=== PATIENT | female | born 1960 | race Caucasian/White ===

== ENCOUNTER 2016-11-01 18:34 | Inpatient (IN) | payer OTHER ==
[~2016-11-01] VITALS: Ht 170.2 cm; Wt 64.9 kg
--- NOTE | ~2016-11-01 | PA ---
Unit #: [id number] #: [id number] Patient: JULIANA SANDRA [id number] [facility] [address] [place] [address] [id number] MR#: [id number] NAME: JULIANA SANDRA ROOM: P256 Age: 56 Sex: F Admission Date: 11/02/2016 : 1960 Date of Assessment: Attending Physician: Miguel Banerjee M.D. Admitting Physician: Miguel Banerjee M.D. Primary Care Physician: Generic Doctor Not In System PSYCHIATRIC ASSESSMENT DATE OF SERVICE 11/02/2016. IDENTIFYING DATA Ms. Sandra is a 56-year-old white female, who is a resident of [place], [place], and was transferred to from [facility] in [place], where she was taken accompanied by her . CHIEF COMPLAINT "I'm having a lot of trouble sleeping and anxiety is killing me and my ." HISTORY OF PRESENT ILLNESS Ms. Sandra is a 56-year-old white female with history of mood disorder, who was self-referred to the hospital reporting increasing depression, anxiety, difficulty sleeping and "I went to [facility] with my last night because I thought I might do something." The patient stated that she has been having suicidal thoughts on and off for the last 2 months and it has been worse for the past 2 weeks and she was trying to sleep for days and she stated that she is afraid to be left alone and has Cheryl disease and was taking medications until 2 months ago, at which time, she was placed on different medication by her neurologist and she also started Prozac a couple of months ago and the patient reports that she has a psychiatrist and a neurologist by whom she is currently being treated, and the patient had recent medication change and the patient does report increasing depression, suicidal ideation, that she took a whole bottle of Abilify, which was filled today and the patient has had active suicidal thoughts in the past, and was given charcoal due to her overdose. The patient stated that she has been extremely anxious and depressed and also has been suffering from insomnia and last night, she felt suicidal and the patient's took her off the medication and they felt the medication was making her depressed; however, the patient then ended up overdosing on her Abilify. The patient's psychiatrist suggested that the patient should stop taking all of her medications, start over slowly and today the patient's was on the computer and when he came out of the room, the patient was on the couch and told him that she took the whole bottle of pills that they picked up today and she told the patient that she was trying to sleep; however, she has been making suicidal statements for the past 2 weeks and as such, was taken to the emergency room where she was medically cleared and then transferred to us. SUBSTANCE ABUSE HISTORY The patient denies any alcohol or drug abuse. Unit #: [id number] #: [id number] Patient: JULIANA SANDRA PAST PSYCHIATRIC HISTORY The patient has had history of outpatient psychiatric treatment, currently has been seeing Dr. Carmona on an outpatient basis and has been on different psychotropic medications; however, she reports that her psychiatrist has suggested a drug holiday and starting over slowly. PAST MEDICAL HISTORY Cheryl disease. ALLERGIES No known medication allergies. PERSONAL AND SOCIAL HISTORY A 56-year-old white female, who reports that she is and lives at home with her and has fairly decent social support system. MENTAL STATUS EXAMINATION Middle-aged white female who was casually dressed with fair personal hygiene, appears to be in no acute distress or discomfort. She was awake and alert on interaction with intact orientation to time, place, and person. Her mood was anxious and depressed with a congruent affect. Her speech was slow and restricted in content. Her thought processes were disorganized with some looseness of associations and flight of ideas and suicidal ideations. Her insight and judgment remain significantly impaired. DIAGNOSTIC IMPRESSION Psychiatric: Bipolar disorder, most recent episode depressed, recurrent, moderate, without psychotic features. Medical: [place] disease. Stressors: Moderate psychosocial stressors. TREATMENT PLAN 1. The patient has presented with history of mood disorder, and has been decompensating and will need inpatient hospitalization for safety and stabilization. We will start her back on home medications, though we will hold off on Abilify as the patient overdosed and we will monitor her response to the medications and make further adjustments as needed. 2. Supportive therapy was provided to the patient. 3. Safe, structured, and nourishing environment will be provided. ESTIMATED LENGTH OF STAY 5 to 7 days. ABILITY TO HELP SELF Limited. WILLINGNESS TO HELP SELF The patient appears to be willing to help self. STRENGTHS 1. Communicative. 2. Cooperative. PROBLEMS 1. Chronic dysphoric symptoms. 2. Poor social support system. Unit #: [id number] #: [id number] Patient: JULIANA SANDRA DISCHARGE CRITERIA This will be contingent upon the patient's ability to show resolution of her depression and anxiety and her ability to stay safe to herself, particularly after discharge from the hospital. Dictated by... Eimr Storey/shelly TD: 11/02/2016 08:07 JOB #: [id number] PSYCHIATRIC ASSESSMENT Page 1 of 1 X Miguel Banerjee MD X PSYCHIATRIC ASSESSMENT
--- NOTE | ~2016-11-01 | HP ---
Unit #: [id number] #: [id number] Patient: MARCELLA SANDRA [id number] [place] [address] [id number] I MR#: [id number] NAME: MARCELLA SANDRA ROOM: P256 Age: 56 Sex: F Admission Date: 11/02/2016 : 1960 Attending Physician: Miguel Banerjee M.D. Admitting Physician: Miguel Banerjee M.D. Primary Care Physician: Generic Doctor Not In System HISTORY AND PHYSICAL HISTORY OF PRESENT ILLNESS Marcella is a 56 year old admitted to [address] [place] [address] with depression. PAST MEDICAL HISTORY Cheryl's disease. PAST SURGICAL HISTORY 1. Tubal ligation. 2. Appendectomy. ALLERGIES No known drug allergies. SOCIAL HISTORY She denies cigarettes, alcohol and illicit drug use. FAMILY HISTORY Medically noncontributory. REVIEW OF SYSTEMS No reports of nausea, vomiting or diarrhea. She has had no cough or increased temperature. She has had no complaints of chest pain or irregular heartbeats. She is very weak and is in a wheelchair because of the [place]. CURRENT MEDICATIONS 1. Ritalin 40 mg q.a.m., 20 mg at 1300. 2. Prozac 20 mg daily. 3. Milk of Magnesia p.r.n. 4. Maalox p.r.n. 5. Tylenol p.r.n. PHYSICAL EXAMINATION GENERAL: Alert, thin, in no apparent distress. VITAL SIGNS: Blood pressure 136/86, heart rate 100, respirations 16, temperature 98.6. WEIGHT: 143. HEIGHT: 5 feet 7 inches. SKIN: Warm and dry without rash or lesion. HEENT: Normocephalic. TMs not viewed. Oral and nasal passages clear. Conjunctivae clear. PERRLA. EOMs intact. NECK: Supple without lymphadenopathy or thyromegaly. HEART: Regular rate and rhythm without murmur. Unit #: [id number] #: [id number] Patient: MARCELLA SANDRA LUNGS: Clear. ABDOMEN: Soft, nontender. : Not done. EXTREMITIES: No evidence of cyanosis, clubbing or edema. Movement in all extremities is very irregular. NEUROLOGICAL: Unable to complete extended exam. She is in a wheelchair because of her [place]. Movement in all extremities is very irregular. IMPRESSION Psychiatric admission. RECOMMENDATIONS PSYCHIATRIC: Per psychiatrist. MEDICAL: See no contraindication to participate in facility's activities. MEDICAL PROGNOSIS Good. MEDICAL CONDITION Stable. Dictated by... Ivonne Martino P.A.-C. for Emir Cordova/ismael TD: 11/02/2016 21:22 JOB #: [id number] HISTORY AND PHYSICAL Page 1 of 1 X Ivonne Martino X HISTORY AND PHYSICAL
--- NOTE | ~2016-11-01 | DS ---
Unit #: [id number] #: [id number] Patient: [facility] [id number] [facility] [address] [place] [address] [id number] I MR#: [id number] NAME: JULIANA SANDRA ROOM: P256 Age: 56 Sex: F Admission Date: 11/02/2016 : 1960 Discharge Date: 11/06/2016 Attending Physician: Miguel Banerjee M.D. Primary Care Physician: Generic Doctor Not In System DISCHARGE SUMMARY IDENTIFYING DATA Ms. Sandra is a 56-year-old white female, who is a resident of [place], [place] and was transferred to us from [facility]. HISTORY OF PRESENT ILLNESS Please see initial psychiatric evaluation for details. PAST PSYCHIATRIC HISTORY Please see initial psychiatric evaluation for details. PAST MEDICAL HISTORY Please see initial psychiatric evaluation for details. HOSPITAL COURSE The patient was admitted to the Adult Psychiatric Unit at [facility] and oriented to the hospital environment. Routine p.r.n. medications were initiated and she was started back on her home medications, Prozac as an antidepressant was initiated and she was closely monitored. The patient was taken the medications regularly and was tolerating them fairly well and was able to show a decent therapeutic response with improvement in depression and anxiety, and as such it was decided that she would be kept on her current medications and will be discharged home and will continue her treatment on an outpatient basis. DISCHARGE DIAGNOSES Psychiatric: [place] I Bipolar disorder, recent episode depressive, recurrent, moderate without psychotic features. [place] II [place] III Vaughn's disease. [place] IV Mild psychosocial stressors. [place] V DISCHARGE MEDICATIONS Prozac 20 mg a day for depression CONDITION AT DISCHARGE Stable. PROGNOSIS Fair. Unit #: [id number] #: [id number] Patient: JULIANA SANDRA Dictated by... Emir Storey/leona TD: 11/07/2016 11:26 JOB #: [id number] DISCHARGE SUMMARY Page 1 of 1 X Miguel Banerjee MD DISCHARGE SUMMARY
--- NOTE | ~2016-11-01 | PN ---
Unit #: [id number] #: [id number] Patient: JULIANA BOURGEOIS [id number] [facility] [address] [place] [address] [id number] I MR#: [id number] NAME: JULIANA BOURGEOIS ROOM: P256 Age: 56 Sex: F Admission Date: 11/02/2016 : 1960 Attending Physician: Miguel Banerjee M.D. Admitting Physician: Miguel Banerjee M.D. Primary Care Physician: Generic Doctor Not In System [facility] PROGRESS NOTES DATE 11/03/2016 DISCUSSION Ms. Bourgeois is a 56-year-old white female who was seen today and chart was reviewed and case was discussed with the staff. She has been anxious, withdrawn, depressed and rather seclusive to herself. Meanwhile, she has been cooperative with treatment recommendations and has been taking medications and tolerating them fairly well with no reported side effects. MENTAL STATUS EXAMINATION Middle-aged white female who was casually dressed with fair personal hygiene and appears to be in no acute distress or discomfort. She was awake and alert on interaction with intact orientation. Her mood was anxious and depressed with congruent affect. She denies any suicidal or homicidal ideation and also denies any auditory or visual hallucinations. Her insight and judgement remains slightly impaired. TREATMENT PLAN 1. We will continue on current medications and treatment protocol. Will monitor her response to the medications and make further adjustments as needed. 2. Will continue to follow up. Dictated by... Emir Storey/ismael TD: 11/03/2016 20:30 JOB #: [id number] Unit #: [id number] #: [id number] Patient: JULIANA BOURGEOIS PROGRESS NOTES Page 1 of 1 X Miguel Banerjee MD PROGRESS NOTE
--- NOTE | ~2016-11-01 | PN ---
Unit #: [id number] #: [id number] Patient: JULIANA BOURGEOIS [id number] [facility] [address] [place] [address] [id number] MR#: [id number] NAME: JULIANA BOURGEOIS ROOM: P256 Age: 56 Sex: F Admission Date: 11/02/2016 : 1960 Attending Physician: Miguel Banerjee M.D. Admitting Physician: Miguel Banerjee M.D. Primary Care Physician: Generic Doctor Not In System [facility] PROGRESS NOTES DATE November 04, 2016 DISCUSSION Ms. Bourgeois is a 56-year-old white female, who was seen today and chart was reviewed and the case was discussed with the staff. She has been anxious, withdrawn, but rather seclusive to herself. Meanwhile, she has not shown any agitation or aggression and has been cooperative with the treatment recommendations and she has been taking the medications and tolerating them fairly well. MENTAL STATUS EXAMINATION Middle-aged white female, who was casually dressed with fair personal hygiene and appears to be in no acute distress or discomfort. The patient was awake and alert with impaired attention and concentration. Her mood was anxious with a congruent affect. Her speech is slow and restricted in content. The patient denies any suicidal or homicidal ideations. Her insight and judgment remain slightly impaired. TREATMENT PLAN 1. We will continue her on her current medications and treatment protocol, and will monitor her response to the medications, and make further adjustments as needed. 2. We will continue to followup. Dictated by... Emir Storey/leona TD: 11/05/2016 05:31 JOB #: [id number] Unit #: [id number] #: [id number] Patient: [facility] Page 1 of 1 X Miguel Banerjee MD PROGRESS NOTE
--- NOTE | ~2016-11-01 | PN ---
Unit #: [id number] #: [id number] Patient: JULIANA BOURGEOIS [id number] [facility] [address] [place] [address] [id number] I MR#: [id number] NAME: JULIANA BOURGEOIS ROOM: P256 Age: 56 Sex: F Admission Date: 11/02/2016 : 1960 Attending Physician: Miguel Banerjee M.D. Admitting Physician: Miguel Banerjee M.D. Primary Care Physician: Generic Doctor Not In System [facility] PROGRESS NOTES DATE OF SERVICE: 11/05/2016 SUBJECTIVE Ms. Bourgeois is a 54-year-old white female who was seen today and chart was reviewed, and case was discussed with the staff. She has been doing fairly well and has been calm, and reports improvement in her depression and mentions that she has been taking the medications without any side effects. MENTAL STATUS EXAMINATION Young white female who was casually dressed with fair personal hygiene, appears to be in no acute distress or discomfort. She was awake and alert with intact orientation. Her mood was anxious with a congruent affect. She denies any suicidal or homicidal ideations. Her insight and judgment remain slightly impaired. TREATMENT PLAN 1. We will continue on her current medications and treatment protocol. We will monitor make further adjustments as needed. 2. We will continue to follow up. Dictated by... Emir Storey/shelly TD: 11/05/2016 11:18 JOB #: [id number] [facility] PROGRESS NOTES Page 1 of 1 X Miguel Banerjee MD PROGRESS NOTE
--- NOTE | ~2016-11-01 | A ---
[facility] Therapy DATE: 11/02/16 Patient: JULIANA BOAZ Physician: AFAIRF Address: [address] [place] [address] Room/Bed: [address], Zip: [place] [address] Admit Date: 11/02/16 Date of : 58 Height: 5 7 Weight: [phone] NUTRITIONAL ASSESSMENT: REASON: NUTRITION RISK POINT: DIFFICULTIES CHEWING/SWALLOWING PATIENT ADMITTED FOR SI AND MEDICATION O/D PMH: [place] DISEASE Anthropometrics: HT: 67", WT: 143#, BMI: 22.4 Labs: NO LABS AVAILABLE Meds: MILK OF MAG, MAG-AL Assessment: PATIENT IS A 56 Y/O FEMALE ADMITTED FOR SI AND MEDICATION O/D. PATIENT IS CURRENTLY DISABLED, LIVES WITH , AND SHE DENIES ANY SUBSTANCE ABUSE. IT IS NOTED THAT PATIENT HAD A RECENT CHANGE IN HER MEDICATIONS AND SHE HAS HAD SOME DIFFICULTIES ADJUSTING. PATIENT'S SI HAS BEEN GETTING MORE SEVERE OVER LAST 2 WEEKS AND SHE VERY RECENTLY TOOK AN ENTIRE BOTTLE OF ABILIFY AND WAS GIVEN CHARCOAL. UPON ADMIT PATIENT STATED A GOOD APPETITE WITH A 14# WEIGHT GAIN IN THE LAST 2 MONTHS, AND SHE HAS NOT BEEN SLEEPING. PATIENT MAY EXPERIENCE SOME GI UPSET D/T CHARCOAL SUCH NAUSEA AND DIARRHEA. THERE ARE NO C/O CHEWING OR SWALLOWING DIFFICULTIES AND PATIENT IS ON A REGULAR DIET. THERE IS NO [facility] AND THERE ARE NO PO INTAKES AVAILABLE D/T PATIENT ADMITTED TO FACILITY TODAY. HER BMI IS WITHIN A HEALTHY RANGE AND THERE ARE NO SKIN ISSUES NOTED ATT. Dx: NO NUTRITION DX Intervention: REGULAR DIET, MEDS PER MD, PSYCH Monitoring, Evaluation and Goals: 1. ADEQUATE PO INTAKES >50% OF MEALS 2. PREVENT, CORRECT MICRO/MACRO NUTRIENT DEFICIENCIES MONITOR: WEIGHTS, LABS, PO/FLUID INTAKES Recommendations: 1. CONTINUE REGULAR DIET TOLERATED 2. ENCOURAGE ADEQUATE PO AND FLUID INTAKES 3. OBTAIN WEIGHTS ROUTINELY (EVERY 3-4 DAYS) 4. IF PATIENT HAS FURTHER C/O CHEWING/SWALLOWING DIFFICULTIES PLEASE CONSULT FOOD AND BEVERAGE CASHIER FOR [facility] Therapy DATE: 11/02/16 Patient: JULIANA SANDRA Physician: AFAIRF Address: [address] [facility] Room/Bed: [address], Zip: [place] [address] Admit Date: 11/02/16 Date of : 58 Height: 5 7 Weight: [id number] FURTHER EVALUATION 5. PATIENT MAY EXPERIENCE GI USPET FROM CHARCOAL. PLEASE CONSULT RD WITH ANY FURTHER NUTRITION QUESTIONS OR CONCERNS RD TO F/U PER PROTOCOL AND PRN R/T PATIENT NOT AT NUTRITIONAL RISK ATT Respectfully, NIKKO ESQUEDA, CHU, LD [employer] [facility] Nutrition[facility] Services [facility] cc: client file
[2016-11-05 12:47] LABS: URINE APPEARANCE CLEAR; URINE BILIRUBIN NEG (NEG); URINE BLOOD NEG (NEG); URINE COLOR YELLOW; URINE GLUCOSE NEG (NEG); URINE KETONE NEG (NEG); URINE LEUKOCYTE ESTERASE 2+ (NEG); URINE NITRATE NEG (NEG); URINE PH 5.5 (5-8); URINE PROTEIN NEG (NEG); URINE SPECIFIC GRAVITY 1.021 (1.003-1.035); URINE UROBILINOGEN 0.2 MG/DL (NEG)
[2016-11-05 12:49] LABS: URBCS1 AUWI 0-2 /[HPF] (0-2); URINE BACTERIA AUWI NEG (NEGATIVE)
[2016-11-05 13:01] LABS: AMPHETAMINE NEG (NEG); BARBITURATES NEG (NEG); BENZODIAZEPINES NEG (NEG); COCAINE NEG (NEG); MARIJUANA NEG (NEG); OPIATES NEG (NEG); TRICYCLIC ANTIDEPRESSANTS NEG (NEG); U METHADONE NEG (NEG)
[2016-11-05 13:09] LABS: UWBCS1 AUWI 0-2 (0-5)
[2016-11-05 13:10] LABS: URINE MUCUS PRESENT; URINE SQUAMOUS EPITHELIAL CELL OCCAS /[HPF]
== END 2016-11-06 11:30 | disposition home or self-care (01) | DRG 885 ==
LOC: P2L 11-02 00:52
PROVIDERS: Psychiatry & Neurology Psychiatry
DX: F31.32 Bipolar disorder, current episode depressed, moderate (principal); G10 Huntington's disease; R45.851 Suicidal ideations; Z98.51 Tubal ligation status
CPT/HCPCS: 80307; 81003